=== PATIENT | male | born 1995 | race Caucasian/White ===

== ENCOUNTER 2017-12-08 14:22 | Emergency (ER) | payer MEDICAID ==
[~2017-12-08] VITALS: Ht 182.9 cm; Wt 86.4 kg
[2017-12-08 14:24] VITALS: BP 150/118
[2017-12-08] MEDS ORDERED: MORPHINE SULFATE 4 MG/ML SYRINGE IM ONE (15:15)
== END 2017-12-08 17:11 | disposition home or self-care (01) ==
LOC: EMS 14:25
DX: S82.402A Unspecified fracture of shaft of left fibula, initial encounter for closed fracture (principal); X58.XXXA Exposure to other specified factors, initial encounter; Y93.61 Activity, american tackle football; Y92.89 Other specified places as the place of occurrence of the external cause; Y99.8 Other external cause status
CPT/HCPCS: 73562; 73590; 96372; 99284; J2270